=== PATIENT | female | born 1970 | race Caucasian/White ===

== ENCOUNTER 2017-10-18 17:02 | Emergency (ER) | payer SELFPAY ==
[~2017-10-18] VITALS: Ht 161.3 cm; Wt 88.6 kg
[~2017-10-18 17:02] MED LIST: ATIVAN0.5 MG PO; ATIVAN1 M1 PO; BACTRIM DS1 TAB PO; FLUARIX QUADRIV1 IN1 IM; LEVOTHYROXIN50 MC1 PO; LORTAB 7.5 PO; SYNTHROID25 MCG PO; TOPAMAX100 M1 PO; TRILEPTAL300 M1 OR; ULTRAM50 M1 PO
[2017-10-18 18:29] LABS: IMMATURE GRANULOCYTES 0.3 % (0.0-1.0); MEAN CORPUSCULAR HGB 32.3 pG CALC (26.0-32.0); MEAN CORPUSCULAR HGB CONC 34.3 g/L CALC (32.0-36.0); NEUT# 6.27 thou/uL (2.00-7.15); RED BLOOD COUNT 5.02 mill/uL (4.20-5.60); RED CELL DISTRI WIDTH 11.7 % (11.5-15.5)
[2017-10-18 18:31] LABS: HEMATOCRIT 47.2 % (37.0-47.0); HEMOGLOBIN 16.2 g/dl (12.0-16.0)
[2017-10-18 18:39] LABS: ALBUMIN 4.5 g/dL (3.2-5.0); BILIRUBIN, TOTAL 0.6 mg/dL (0.0-1.4); BUN 25 mg/dL (7-17); BUN/CREATININE RATIO 16 (12-20 (CALC)); CHLORIDE 99 mmol/l (95-108); CREATININE 1.6 mg/dL (0.5-1.0); GFR 35 ML/MIN (>=60 (CALC)); GFR FOR AFR.AMER. 42 ML/MIN (>=60 (CALC)); POTASSIUM 4.1 mmol/l (3.5-5.1); SGPT/ALT 58 u/l (9-52); SODIUM 141 mmol/l (137-146); TOTAL PROTEIN 8.2 g/dL (6.3-8.2)
[2017-10-18 18:51] LABS: MYOGLOBIN 55 ng/mL (0 - 62)
[2017-10-18 18:52] LABS: ALKALINE PHOSPHATASE 86 u/l (38-126); ANION GAP 19 (6-22 (CALC)); CARBON DIOXIDE 27 mmol/l (22-30); SGOT/AST 50 u/l (14-36)
[2017-10-18 18:56] LABS: URINE BILIRUBIN - DIPSTICK NEGATIVE (NEGATIVE); URINE BLOOD DIPSTICK SMALL (NEGATIVE); URINE COLOR YELLOW; URINE GLUCOSE - DIPSTICK NEGATIVE (NEGATIVE); URINE KETONE NEGATIVE (NEGATIVE); URINE LEUK ESTERASE NEGATIVE (NEGATIVE); URINE NITRITE - DIPSTICK NEGATIVE (Negative); URINE PH 5.5 (4.5-8.0); URINE PROTEIN - DIPSTICK NEGATIVE (NEG-TRACE); URINE UROBILINOGEN - DIPSTICK 0.2 E.U./dL (0.2)
[2017-10-18 18:59] LABS: URINE CLARITY CLEAR; URINE EPITHELIAL CELLS FEW EPI/hpf (0-FEW)
[2017-10-18] MEDS ORDERED: AMLODIPINE5 MG PO (19:21)
[2017-10-18 19:30] VITALS: BP 174/105
== END 2017-10-18 19:35 | disposition home or self-care (01) | DRG 305 ==
LOC: ED 17:02
DX: I16.0 Hypertensive urgency (principal); E07.9 Disorder of thyroid, unspecified; I10 Essential (primary) hypertension

== ENCOUNTER 2017-12-06 20:22 | Emergency (ER) | payer BC, OTHER ==
[~2017-12-06] VITALS: Ht 157.5 cm; Wt 89.2 kg
[~2017-12-06 20:22] MED LIST changes: +AMLODIPINE5 MG PO
[2017-12-06 21:16] LABS: URINE BILIRUBIN - DIPSTICK NEGATIVE (NEGATIVE); URINE BLOOD DIPSTICK SMALL (NEGATIVE); URINE COLOR YELLOW; URINE GLUCOSE - DIPSTICK NEGATIVE (NEGATIVE); URINE KETONE NEGATIVE (NEGATIVE); URINE NITRITE - DIPSTICK NEGATIVE (Negative); URINE PROTEIN - DIPSTICK NEGATIVE (NEG-TRACE); URINE UROBILINOGEN - DIPSTICK 0.2 E.U./dL (0.2)
[2017-12-06 21:21] LABS: URINE CLARITY CLOUDY; URINE LEUK ESTERASE SMALL (NEGATIVE)
[2017-12-06 21:22] LABS: HEMATOCRIT 43.1 % (37.0-47.0); IMMATURE GRANULOCYTES 0.5 % (0.0-1.0); MEAN CELL VOLUME 91.5 fL CALC (80.0-100.0); MEAN CORPUSCULAR HGB 31.8 pG CALC (26.0-32.0); MEAN CORPUSCULAR HGB CONC 34.8 g/L CALC (32.0-36.0); NEUT# 7.46 thou/uL (2.00-7.15); RED BLOOD COUNT 4.71 mill/uL (4.20-5.60); RED CELL DISTRI WIDTH 11.7 % (11.5-15.5)
[2017-12-06 21:29] LABS: ALBUMIN 4.8 g/dL (3.2-5.0); AMYLASE 115 u/l (30-110); ANION GAP 18 (6-22 (CALC)); BILIRUBIN, TOTAL 1.1 mg/dL (0.0-1.4); BUN 18 mg/dL (7-17); BUN/CREATININE RATIO 28 (12-20 (CALC)); CARBON DIOXIDE 23 mmol/l (22-30); CHLORIDE 99 mmol/l (95-108); CREATININE 0.7 mg/dL (0.5-1.0); GFR > 60 ML/MIN (>=60 (CALC)); GFR FOR AFR.AMER. > 60 ML/MIN (>=60 (CALC)); LIPASE 262 u/l (23-300); POTASSIUM 4.7 mmol/l (3.5-5.1); SGOT/AST 69 u/l (14-36); SGPT/ALT 100 u/l (9-52); SODIUM 135 mmol/l (137-146); TOTAL PROTEIN 9.1 g/dL (6.3-8.2)
[2017-12-06 21:31] LABS: URINE BACTERIA FEW hpf; URINE SQUAMOUS EPITHELIAL CELL FEW EPI/hpf (0-FEW)
[2017-12-06 21:37] LABS: ALKALINE PHOSPHATASE 132 u/l (38-126)
[2017-12-06 21:40] LABS: MYOGLOBIN 36 ng/mL (0 - 62)
[2017-12-06] MEDS ORDERED: ORPHENADRINE100 MG PO (22:45)
[2017-12-06] MEDS ORDERED: IBUPROFEN600 MG PO (22:45)
[2017-12-06] MEDS ORDERED: CIPROFLOXACN500 MG PO (22:46)
[2017-12-06 23:06] VITALS: BP 139/87
== END 2017-12-06 23:06 | disposition home or self-care (01) | DRG 690 ==
LOC: ED 20:22
PROVIDERS: Emergency Medicine
DX: N39.0 Urinary tract infection, site not specified (principal); R10.9 Unspecified abdominal pain; N20.0 Calculus of kidney

== ENCOUNTER 2017-12-08 07:05 | Emergency (ER) | payer BC, OTHER ==
[~2017-12-08] VITALS: Ht 157.5 cm; Wt 80.0 kg
[~2017-12-08 07:05] MED LIST changes: +CIPROFLOXACN500 MG PO; +IBUPROFEN600 MG PO; +ORPHENADRINE100 MG PO
[2017-12-08] MEDS ORDERED: ASPERCREME LIDOCA41 TOP ×2 (07:46→08:03)
[2017-12-08] MEDS ORDERED: MOTRIN400 MG PO ×2 (07:46→08:03)
[2017-12-08] MEDS ORDERED: VOLTAREN1%GEL TOP ×2 (07:46→08:03)
[2017-12-08] MEDS ORDERED: LEVOTHYROXIN50 MCG PO (07:57)
[2017-12-08] MEDS ORDERED: HYDROCHLOROT12.5 M1 PO (07:58)
[2017-12-08 08:35] VITALS: BP 144/83
== END 2017-12-08 08:35 | disposition home or self-care (01) | DRG 552 ==
LOC: ED 07:05
DX: M54.5 Low back pain (principal); M54.6 Pain in thoracic spine; I10 Essential (primary) hypertension; E07.9 Disorder of thyroid, unspecified

== ENCOUNTER 2019-04-14 07:52 | Emergency (ER) | payer SELFPAY ==
[~2019-04-14] VITALS: Ht 157.5 cm; Wt 80.0 kg
[~2019-04-14 07:52] MED LIST changes: +ASPERCREME LIDOCA41 TOP; +HYDROCHLOROT12.5 M1 PO; +LEVOTHYROXIN50 MCG PO; +MOTRIN400 MG PO; +VOLTAREN1%GEL TOP
[2019-04-14] MEDS ORDERED: LISINOP/HCTZ1 TA2 PO (08:15)
[2019-04-14] MEDS ORDERED: MUPIROCIN2 % EX (08:21)
[2019-04-14 08:25] VITALS: BP 151/86
== END 2019-04-14 08:30 | disposition home or self-care (01) | DRG 607 ==
LOC: ED 07:52
DX: S90.862A Insect bite (nonvenomous), left foot, initial encounter (principal); I10 Essential (primary) hypertension; F17.210 Nicotine dependence, cigarettes, uncomplicated; W57.XXXA Bitten or stung by nonvenomous insect and other nonvenomous arthropods, initial encounter

== ENCOUNTER 2019-12-28 07:30 | Emergency (ER) | payer SELFPAY ==
[~2019-12-28] VITALS: Ht 157.5 cm; Wt 90.0 kg
[~2019-12-28 07:30] MED LIST changes: +LISINOP/HCTZ1 TA2 PO; +MUPIROCIN2 % EX
[2019-12-28 08:54] LABS: URINE BILIRUBIN - DIPSTICK NEGATIVE (NEGATIVE); URINE BLOOD DIPSTICK MODERATE (NEGATIVE); URINE COLOR YELLOW; URINE GLUCOSE - DIPSTICK NEGATIVE (NEGATIVE); URINE KETONE NEGATIVE (NEGATIVE); URINE LEUK ESTERASE NEGATIVE (NEGATIVE); URINE NITRITE - DIPSTICK NEGATIVE (Negative); URINE PROTEIN - DIPSTICK TRACE mg/dL (NEG-TRACE)
[2019-12-28 08:57] LABS: ALBUMIN 4.7 g/dL (3.2-5.0); ALKALINE PHOSPHATASE 87 u/l (38-126); ANION GAP 9 (6-22 (CALC)); BUN 9 mg/dL (7-17); BUN/CREATININE RATIO 13 (12-20 (CALC)); CARBON DIOXIDE 26 mmol/l (22-30); CHLORIDE 107 mmol/l (95-108); CREATININE 0.7 mg/dL (0.5-1.0); GFR > 60 ML/MIN (>=60 (CALC)); GFR FOR AFR.AMER. > 60 ML/MIN (>=60 (CALC)); POTASSIUM 3.8 mmol/l (3.5-5.1); SGOT/AST 34 u/l (14-36); SODIUM 138 mmol/l (137-146); TOTAL PROTEIN 7.9 g/dL (6.3-8.2)
[2019-12-28 09:02] LABS: HCG SERUM/URINE (NEG/POS) NEGATIVE (NEGATIVE)
[2019-12-28 09:03] LABS: HEMATOCRIT 47.4 % (37.0-47.0); HEMOGLOBIN 15.4 g/dl (12.0-16.0); IMMATURE GRANULOCYTES 0.4 % (0.0-5.0); MEAN CORPUSCULAR HGB 31.2 pG CALC (26.0-32.0); MEAN CORPUSCULAR HGB CONC 32.5 g/dL CAL (32.0-36.0); NEUT# 9.26 thou/uL (2.00-7.15); RED BLOOD COUNT 4.94 mill/uL (4.20-5.60); RED CELL DISTRI WIDTH 12.3 % (11.5-15.5)
[2019-12-28 09:05] LABS: URINE EPITHELIAL CELLS FEW EPI/hpf (0-FEW)
[2019-12-28 09:05] LABS: BILIRUBIN, TOTAL 0.5 mg/dL (0.0-1.4)
[2019-12-28 09:29] LABS: TSH, 3RD GENERATION 0.65 uIU/mL (0.47 - 4.68)
[2019-12-28] MEDS ORDERED: CIPROFLOXACN500 MG PO (11:04)
[2019-12-28 11:06] VITALS: BP 169/109
== END 2019-12-28 11:16 | disposition home or self-care (01) | DRG 392 ==
LOC: ED 07:30
PROVIDERS: Emergency Medicine
DX: A08.4 Viral intestinal infection, unspecified (principal); I10 Essential (primary) hypertension; F17.200 Nicotine dependence, unspecified, uncomplicated; Z20.828 Contact with and (suspected) exposure to other viral communicable diseases

== ENCOUNTER 2020-10-15 | Emergency (ER) | payer BC ==
[2020-10-15] MEDS ORDERED: LISINOPRIL20 M1 PO (05:26)
[2020-10-15 05:53] LABS: HEMATOCRIT 50.5 % (37.0-47.0); HEMOGLOBIN 16.5 g/dl (12.0-16.0); IMMATURE GRANULOCYTES 0.4 % (0.0-5.0); MEAN CELL VOLUME 94.7 fL CALC (80.0-100.0); MEAN CORPUSCULAR HGB CONC 32.7 g/dL CAL (32.0-36.0); NEUT# 3.33 thou/uL (2.00-7.15); RED BLOOD COUNT 5.33 mill/uL (4.20-5.60); RED CELL DISTRI WIDTH 12.5 % (11.5-15.5); URINE BLOOD DIPSTICK SMALL (NEGATIVE); URINE COLOR YELLOW; URINE GLUCOSE - DIPSTICK NEGATIVE (NEGATIVE); URINE KETONE NEGATIVE (NEGATIVE); URINE LEUK ESTERASE NEGATIVE (NEGATIVE); URINE PH 6.5 (4.5-8.0); URINE PROTEIN - DIPSTICK 100 mg/dL (NEG-TRACE); URINE SPECIFIC GRAVITY >=1.030; URINE UROBILINOGEN - DIPSTICK 0.2 E.U./dL (0.2)
[2020-10-15 06:04] LABS: URINE BILIRUBIN - DIPSTICK NEGATIVE (NEGATIVE); URINE NITRITE - DIPSTICK NEGATIVE (Negative)
[2020-10-15 06:05] LABS: URINE BACTERIA FEW hpf; URINE SQUAMOUS EPITHELIAL CELL MANY EPI/hpf (0-FEW); URINE WBC 0-2 WBC/hpf (0-5)
[2020-10-15 06:54] LABS: ALBUMIN 3.9 g/dL (3.2-5.0); ALKALINE PHOSPHATASE 102 u/l (38-126); ANION GAP 10 (6-22 (CALC)); BILIRUBIN, TOTAL 0.6 mg/dL (0.0-1.4); BUN 8 mg/dL (7-17); BUN/CREATININE RATIO 10 (12-20 (CALC)); CARBON DIOXIDE 25 mmol/l (22-30); CHLORIDE 106 mmol/l (95-108); CREATININE 0.8 mg/dL (0.5-1.0); GFR > 60 ML/MIN (>=60 (CALC)); GFR FOR AFR.AMER. > 60 ML/MIN (>=60 (CALC)); MAGNESIUM 1.9 mg/dL (1.6-2.3); POTASSIUM 3.6 mmol/l (3.5-5.1); SODIUM 137 mmol/l (137-146); TOTAL PROTEIN 7.4 g/dL (6.3-8.2)
[2020-10-15 06:58] LABS: D-DIMER 0.63 mg/L (0.19-0.60)
[2020-10-15 07:02] LABS: ACT PARTIAL THROMBO TIME 26.4 SECONDS (20.0-32.5); PROTHROMBIN TIME 9.7 SECONDS (9.0-12.5)
[2020-10-15 07:05] LABS: MYOGLOBIN 50 ng/mL (0 - 62)
[2020-10-15 07:08] LABS: SGOT/AST 77 u/l (14-36)
[2020-10-15] MEDS ORDERED: ONDANSETRON4 MG PO (08:49)
== END 2020-10-15 11:57 | disposition home or self-care (01) | DRG 179 ==
PROVIDERS: Family Medicine
DX: U07.1 COVID-19 (principal); R11.2 Nausea with vomiting, unspecified; M79.10 Myalgia, unspecified site; I10 Essential (primary) hypertension; F17.210 Nicotine dependence, cigarettes, uncomplicated
CPT/HCPCS: Q9967

== ENCOUNTER 2021-03-13 03:04 | Emergency (ER) | payer SELFPAY ==
[~2021-03-13] VITALS: Ht 157.5 cm; Wt 85.0 kg
[~2021-03-13 03:04] MED LIST changes: +LISINOPRIL20 M1 PO; +ONDANSETRON4 MG PO
[2021-03-13 04:00] LABS: URINE BILIRUBIN - DIPSTICK NEGATIVE (NEGATIVE); URINE BLOOD DIPSTICK LARGE (NEGATIVE); URINE GLUCOSE - DIPSTICK NEGATIVE (NEGATIVE); URINE PH 6.5 (4.5-8.0); URINE PROTEIN - DIPSTICK 100 mg/dL (NEG-TRACE); URINE SPECIFIC GRAVITY 1.025; URINE UROBILINOGEN - DIPSTICK 0.2 E.U./dL (0.2)
[2021-03-13 04:02] LABS: URINE LEUK ESTERASE SMALL (NEGATIVE); URINE NITRITE - DIPSTICK POSITIVE (Negative)
[2021-03-13 04:02] LABS: HEMATOCRIT 46.3 % (37.0-47.0); HEMOGLOBIN 15.1 g/dl (12.0-16.0); IMMATURE GRANULOCYTES 0.3 % (0.0-5.0); MEAN CELL VOLUME 98.3 fL CALC (80.0-100.0); MEAN CORPUSCULAR HGB 32.1 pG CALC (26.0-32.0); MEAN CORPUSCULAR HGB CONC 32.6 g/dL CAL (32.0-36.0); NEUT# 10.18 thou/uL (2.00-7.15); RED BLOOD COUNT 4.71 mill/uL (4.20-5.60); RED CELL DISTRI WIDTH 11.9 % (11.5-15.5)
[2021-03-13 04:04] LABS: URINE COLOR RED
[2021-03-13 04:05] LABS: URINE KETONE NEGATIVE (NEGATIVE)
[2021-03-13 04:07] LABS: URINE BACTERIA MODERATE hpf; URINE EPITHELIAL CELLS FEW EPI/hpf (0-FEW); URINE RBC TNTC RBC/hpf (0-5)
[2021-03-13 04:18] LABS: ALKALINE PHOSPHATASE 89 u/l (38-126); ANION GAP 11 (6-22 (CALC)); BILIRUBIN, TOTAL 0.4 mg/dL (0.0-1.4); BUN 18 mg/dL (7-17); BUN/CREATININE RATIO 25 (12-20 (CALC)); CARBON DIOXIDE 23 mmol/l (22-30); CHLORIDE 105 mmol/l (95-108); CREATININE 0.7 mg/dL (0.5-1.0); GFR > 60 ML/MIN (>=60 (CALC)); GFR FOR AFR.AMER. > 60 ML/MIN (>=60 (CALC)); SGOT/AST 29 u/l (14-36); SODIUM 136 mmol/l (137-146); TOTAL PROTEIN 7.1 g/dL (6.3-8.2)
[2021-03-13] MEDS ORDERED: KEFLEX500 MG PO (05:13)
[2021-03-13 05:56] VITALS: BP 155/95
== END 2021-03-13 05:30 | disposition home or self-care (01) | DRG 690 ==
LOC: ED 03:04
PROVIDERS: Emergency Medicine
DX: N39.0 Urinary tract infection, site not specified (principal); I10 Essential (primary) hypertension; B96.20 Unspecified Escherichia coli [E. coli] as the cause of diseases classified elsewhere

== ENCOUNTER 2021-07-13 02:33 | Emergency (ER) | payer SELFPAY ==
[~2021-07-13] VITALS: Ht 157.5 cm; Wt 86.0 kg
[~2021-07-13 02:33] MED LIST changes: +KEFLEX500 MG PO
[2021-07-13] MEDS ORDERED: ZPAK PO ×2 (03:47→09:07)
[2021-07-13] MEDS ORDERED: TOBREX OPTH5 ML/BTL OS (03:47)
[2021-07-13 03:50] VITALS: BP 170/90
== END 2021-07-13 03:55 | disposition home or self-care (01) | DRG 153 ==
LOC: ED 02:33
DX: J06.9 Acute upper respiratory infection, unspecified (principal); H10.9 Unspecified conjunctivitis; I10 Essential (primary) hypertension; Z86.16 Personal history of COVID-19; Z20.822 Contact with and (suspected) exposure to COVID-19

== ENCOUNTER 2021-10-23 05:50 | Emergency (ER) | payer SELFPAY ==
[~2021-10-23] VITALS: Ht 157.5 cm; Wt 86.4 kg
[2021-10-23] VITALS (12 sets, daily range): BP systolic 134–160; BP diastolic 86–108
[~2021-10-23 05:50] MED LIST changes: +TOBREX OPTH5 ML/BTL OS; +ZPAK PO
[2021-10-23 06:34] LABS: HEMOGLOBIN 15.1 g/dl (12.0-16.0); IMMATURE GRANULOCYTES 0.9 % (0.0-5.0); MEAN CELL VOLUME 97.7 fL CALC (80.0-100.0); MEAN CORPUSCULAR HGB 32.1 pG CALC (26.0-32.0); MEAN CORPUSCULAR HGB CONC 32.8 g/dL CAL (32.0-36.0); NEUT# 5.31 thou/uL (2.00-7.15); RED BLOOD COUNT 4.71 mill/uL (4.20-5.60); RED CELL DISTRI WIDTH 12.7 % (11.5-15.5)
[2021-10-23] MEDS ORDERED: SYNTHROID25 MCG PO (06:51)
[2021-10-23] MEDS ORDERED: LISINOPRIL2.5 MG PO (06:52)
[2021-10-23 07:44] LABS: ALBUMIN 3.4 g/dL (3.2-5.0); ALKALINE PHOSPHATASE 86 u/l (38-126); ANION GAP 9 (6-22 (CALC)); BILIRUBIN, TOTAL 0.4 mg/dL (0.0-1.4); BUN 15 mg/dL (7-17); BUN/CREATININE RATIO 25 (12-20 (CALC)); CARBON DIOXIDE 23 mmol/l (22-30); CHLORIDE 109 mmol/l (95-108); CREATININE 0.6 mg/dL (0.5-1.0); GFR > 60 ML/MIN (>=60 (CALC)); GFR FOR AFR.AMER. > 60 ML/MIN (>=60 (CALC)); POTASSIUM 3.8 mmol/l (3.5-5.1); SGOT/AST 32 u/l (14-36); SODIUM 137 mmol/l (137-146); TOTAL PROTEIN 6.4 g/dL (6.3-8.2)
[2021-10-23 07:56] LABS: MYOGLOBIN 26 ng/mL (0 - 62)
[2021-10-23] MEDS ORDERED: TESSALON PERLE100 MG PO (08:08)
[2021-10-23] MEDS ORDERED: VENTOLIN HFA IN (08:08)
[2021-10-23] MEDS ORDERED: MEDDOSEPAK PO (08:08)
[2021-10-23] MEDS ORDERED: ZPAK PO (08:08)
== END 2021-10-23 08:20 | disposition home or self-care (01) | DRG 203 ==
LOC: ED 05:50
PROVIDERS: Emergency Medicine
DX: J45.909 Unspecified asthma, uncomplicated (principal); I10 Essential (primary) hypertension; Z86.16 Personal history of COVID-19; Z20.822 Contact with and (suspected) exposure to COVID-19

== ENCOUNTER 2021-12-26 01:39 | Emergency (ER) | payer SELFPAY ==
[~2021-12-26] VITALS: Ht 157.5 cm; Wt 82.0 kg
[~2021-12-26 01:39] MED LIST changes: +LISINOPRIL2.5 MG PO; +MEDDOSEPAK PO; +TESSALON PERLE100 MG PO; +VENTOLIN HFA IN
[2021-12-26 01:44] VITALS: BP 197/111
[2021-12-26 01:51] VITALS: BP 175/100
[2021-12-26 02:01] VITALS: BP 197/98
[2021-12-26 02:09] LABS: HEMATOCRIT 44.4 % (37.0-47.0); HEMOGLOBIN 14.4 g/dl (12.0-16.0); IMMATURE GRANULOCYTES 0.5 % (0.0-5.0); MEAN CELL VOLUME 96.7 fL CALC (80.0-100.0); MEAN CORPUSCULAR HGB 31.4 pG CALC (26.0-32.0); MEAN CORPUSCULAR HGB CONC 32.4 g/dL CAL (32.0-36.0); NEUT# 6.49 thou/uL (2.00-7.15); RED BLOOD COUNT 4.59 mill/uL (4.20-5.60); RED CELL DISTRI WIDTH 12.4 % (11.5-15.5)
[2021-12-26 02:16] VITALS: BP 179/101
[2021-12-26 02:17] LABS: HCG SERUM/URINE (NEG/POS) NEGATIVE (NEGATIVE)
[2021-12-26 02:21] LABS: ALBUMIN 3.8 g/dL (3.2-5.0); ALKALINE PHOSPHATASE 111 u/l (38-126); ANION GAP 8 (6-22 (CALC)); BILIRUBIN, TOTAL 0.3 mg/dL (0.0-1.4); BUN 10 mg/dL (7-17); BUN/CREATININE RATIO 16 (12-20 (CALC)); CARBON DIOXIDE 26 mmol/l (22-30); CHLORIDE 107 mmol/l (95-108); CREATININE 0.6 mg/dL (0.5-1.0); GFR FOR AFR.AMER. > 60 ML/MIN (>=60 (CALC)); GFR OTHER RACES > 60 ML/MIN (>=60 (CALC)); POTASSIUM 4.1 mmol/l (3.5-5.1); SGOT/AST 129 u/l (14-36); SODIUM 136 mmol/l (137-146); TOTAL PROTEIN 7.1 g/dL (6.3-8.2)
[2021-12-26 02:29] LABS: ACT PARTIAL THROMBO TIME 19.8 SECONDS (20.0-32.5); INTERNATIONAL NORMALIZED RATIO 0.8 RATIO (0.7-1.3); PROTHROMBIN TIME 8.9 SECONDS (9.0-12.5)
[2021-12-26 02:30] VITALS: BP 189/112
[2021-12-26 02:32] LABS: MYOGLOBIN 32 ng/mL (0 - 62)
[2021-12-26 02:36] LABS: D-DIMER 0.41 mg/L (0.19-0.60)
[2021-12-26] MEDS ORDERED: VENTOLIN HFA IN (02:48)
[2021-12-26 02:50] VITALS: BP 189/112
== END 2021-12-26 02:54 | disposition home or self-care (01) | DRG 179 ==
LOC: ED 01:39
PROVIDERS: Family Medicine
DX: U07.1 COVID-19 (principal); R05.9 Cough, unspecified; R06.02 Shortness of breath; I10 Essential (primary) hypertension; Z86.16 Personal history of COVID-19; Z28.310 Unvaccinated for COVID-19

== ENCOUNTER 2022-06-28 09:34 | Emergency (ER) | payer SELFPAY ==
[~2022-06-28] VITALS: Ht 157.5 cm; Wt 88.0 kg
[2022-06-28] VITALS (8 sets, daily range): BP systolic 152–194; BP diastolic 98–132
[2022-06-28 10:17] LABS: BASO% 0.5 % (0-3); EOS% 9.2 % (0-8); HEMATOCRIT 47.6 % (37.0-47.0); HEMOGLOBIN 16.3 g/dl (12.0-16.0); IMMATURE GRANULOCYTES 0.7 % (0.0-5.0); LYMPH% 14.7 % (15-41); MEAN CELL VOLUME 95.8 fL CALC (80.0-100.0); MEAN CORPUSCULAR HGB 32.8 pG CALC (26.0-32.0); MEAN CORPUSCULAR HGB CONC 34.2 g/dL CAL (32.0-36.0); MONO% 8.3 % (2-13); NEUT# 7.99 thou/uL (2.00-7.15); NEUT% 66.6 % (42-76); RED BLOOD COUNT 4.97 mill/uL (4.20-5.60); RED CELL DISTRI WIDTH 12.5 % (11.5-15.5)
[2022-06-28 10:27] LABS: ALKALINE PHOSPHATASE 114 u/l (38-126); ANION GAP 12 (6-22 (CALC)); BUN 15 mg/dL (7-17); BUN/CREATININE RATIO 22 (12-20 (CALC)); CARBON DIOXIDE 29 mmol/l (22-30); CHLORIDE 104 mmol/l (95-108); CREATININE 0.7 mg/dL (0.5-1.0); GFR FOR AFR.AMER. > 60 ML/MIN (>=60 (CALC)); GFR OTHER RACES > 60 ML/MIN (>=60 (CALC)); LIPASE 204 u/l (23-300); POTASSIUM 4.5 mmol/l (3.5-5.1); SGOT/AST 36 u/l (14-36); SODIUM 140 mmol/l (137-146); TOTAL PROTEIN 7.9 g/dL (6.3-8.2)
[2022-06-28 10:28] LABS: ALBUMIN 4.7 g/dL (3.2-5.0); BILIRUBIN, TOTAL 0.6 mg/dL (0.0-1.4)
[2022-06-28] MEDS ORDERED: OMEPRAZOLE DR20 MG PO (11:53)
== END 2022-06-28 12:05 | disposition home or self-care (01) | DRG 392 ==
LOC: ED 09:34
PROVIDERS: Family Medicine
DX: R10.13 Epigastric pain (principal); I10 Essential (primary) hypertension; E66.9 Obesity, unspecified
CPT/HCPCS: Q9967

== ENCOUNTER 2022-09-28 13:10 | Emergency (ER) | payer SELFPAY ==
[~2022-09-28] VITALS: Ht 157.5 cm; Wt 190.0 kg
[2022-09-28] VITALS (15 sets, daily range): BP systolic 152–188; BP diastolic 98–130
[~2022-09-28 13:10] MED LIST changes: +OMEPRAZOLE DR20 MG PO
[2022-09-28 14:08] LABS: BASO% 0.5 % (0-3); EOS% 2.7 % (0-8); HEMATOCRIT 51.1 % (37.0-47.0); IMMATURE GRANULOCYTES 0.5 % (0.0-5.0); LYMPH% 16.4 % (15-41); MEAN CORPUSCULAR HGB 31.6 pG CALC (26.0-32.0); MEAN CORPUSCULAR HGB CONC 33.3 g/dL CAL (32.0-36.0); NEUT# 7.4 thou/uL (2.00-7.15); NEUT% 71.9 % (42-76); RED BLOOD COUNT 5.38 mill/uL (4.20-5.60); RED CELL DISTRI WIDTH 11.8 % (11.5-15.5)
[2022-09-28 14:20] LABS: ALBUMIN 4.4 g/dL (3.2-5.0); ALKALINE PHOSPHATASE 104 u/l (38-126); BILIRUBIN, TOTAL 0.5 mg/dL (0.02-1.3); BUN 17 mg/dL (7-17); BUN/CREATININE RATIO 20 (12-20 (CALC)); CARBON DIOXIDE 27 mmol/l (22-30); CHLORIDE 105 mmol/l (95-108); CREATININE 0.8 mg/dL (0.5-1.0); GFR FOR AFR.AMER. > 60 ML/MIN (>=60 (CALC)); GFR OTHER RACES > 60 ML/MIN (>=60 (CALC)); SGOT/AST 48 u/l (14-36); SODIUM 141 mmol/l (137-146); TOTAL PROTEIN 7.8 g/dL (6.3-8.2)
[2022-09-28 14:22] LABS: ANION GAP 13 (6-22 (CALC)); POTASSIUM 3.5 mmol/l (3.5-5.1)
[2022-09-28 14:50] LABS: TSH, 3RD GENERATION 1.62 uIU/mL (0.47 - 4.68)
[2022-09-28 16:52] LABS: URINE BILIRUBIN - DIPSTICK NEGATIVE (NEGATIVE); URINE BLOOD DIPSTICK SMALL (NEGATIVE); URINE COLOR YELLOW; URINE GLUCOSE - DIPSTICK NEGATIVE (NEGATIVE); URINE KETONE NEGATIVE (NEGATIVE); URINE LEUK ESTERASE NEGATIVE (NEGATIVE); URINE NITRITE - DIPSTICK NEGATIVE (Negative); URINE PROTEIN - DIPSTICK TRACE mg/dL (NEG-TRACE); URINE SPECIFIC GRAVITY <=1.005; URINE UROBILINOGEN - DIPSTICK 0.2 E.U./dL (0.2)
[2022-09-28 17:01] LABS: URINE RBC 0-2 RBC/hpf (0-5); URINE SQUAMOUS EPITHELIAL CELL MANY EPI/hpf (0-FEW)
== END 2022-09-28 19:12 | disposition home or self-care (01) | DRG 204 ==
LOC: ED 13:10
PROVIDERS: Family Medicine
DX: R06.02 Shortness of breath (principal); I10 Essential (primary) hypertension; Z86.16 Personal history of COVID-19; Z20.822 Contact with and (suspected) exposure to COVID-19
CPT/HCPCS: Q9967

== ENCOUNTER 2024-02-08 16:26 | Emergency (ER) | payer SELFPAY ==
[~2024-02-08] VITALS: Ht 157.5 cm; Wt 90.7 kg
[~2024-02-08 16:26] MED LIST changes: +BUPROPION HCL150 MG PO; +ZYRTEC10 MG PO
[2024-02-08 16:34] VITALS: BP 177/111
[2024-02-08 16:45] VITALS: BP 164/94
[2024-02-08 16:50] LABS: BASO% 0.4 % (0-3); HEMOGLOBIN 16.2 g/dl (12.0-16.0); LYMPH% 20.6 % (15-41); MEAN CELL VOLUME 98.8 fL CALC (80.0-100.0); MEAN CORPUSCULAR HGB 32.7 pG CALC (26.0-32.0); MEAN CORPUSCULAR HGB CONC 33.1 g/dL CAL (32.0-36.0); MONO% 9.7 % (2-13); NEUT# 6.81 thou/uL (2.00-7.15); NEUT% 65.3 % (42-76); RED BLOOD COUNT 4.96 mill/uL (4.20-5.60)
[2024-02-08 17:00] VITALS: BP 165/101
[2024-02-08 17:04] LABS: ALBUMIN 4.3 g/dL (3.2-5.0); CREATININE 1.2 mg/dL (0.5-1.0); POTASSIUM 4.4 mmol/l (3.5-5.1); TOTAL PROTEIN 7.4 g/dL (6.3-8.2)
[2024-02-08 17:06] LABS: BILIRUBIN, TOTAL 0.8 mg/dL (0.02-1.3)
[2024-02-08 17:15] VITALS: BP 169/105
[2024-02-08 17:33] VITALS: BP 164/92
[2024-02-08 17:35] LABS: TSH, 3RD GENERATION 1.99 uIU/mL (0.47 - 4.68)
[2024-02-08 18:52] VITALS: BP 164/92
== END 2024-02-08 18:56 | disposition home or self-care (01) | DRG 204 ==
LOC: ED 16:26
PROVIDERS: Family Medicine
DX: R06.02 Shortness of breath (principal); R22.1 Localized swelling, mass and lump, neck; I10 Essential (primary) hypertension; E66.9 Obesity, unspecified; F17.210 Nicotine dependence, cigarettes, uncomplicated; Z86.16 Personal history of COVID-19; Z20.822 Contact with and (suspected) exposure to COVID-19
CPT/HCPCS: Q9967

== ENCOUNTER 2024-02-11 14:10 | Emergency (ER) | payer SELFPAY ==
[~2024-02-11] VITALS: Ht 157.5 cm; Wt 90.0 kg
[2024-02-11] VITALS (17 sets, daily range): BP systolic 139–193; BP diastolic 92–115
[2024-02-11 14:49] LABS: BASO% 0.4 % (0-3); EOS% 2.9 % (0-8); HEMOGLOBIN 16.7 g/dl (12.0-16.0); LYMPH% 15.9 % (15-41); MEAN CELL VOLUME 97.3 fL CALC (80.0-100.0); MEAN CORPUSCULAR HGB 31.9 pG CALC (26.0-32.0); MEAN CORPUSCULAR HGB CONC 32.7 g/dL CAL (32.0-36.0); MONO% 8.5 % (2-13); NEUT# 6.71 thou/uL (2.00-7.15); NEUT% 71.3 % (42-76); RED BLOOD COUNT 5.24 mill/uL (4.20-5.60); RED CELL DISTRI WIDTH 12.9 % (11.5-15.5)
[2024-02-11 14:57] LABS: ALBUMIN 4.4 g/dL (3.2-5.0); BILIRUBIN, TOTAL 0.8 mg/dL (0.02-1.3); CREATININE 0.7 mg/dL (0.5-1.0); POTASSIUM 4.2 mmol/l (3.5-5.1); TOTAL PROTEIN 7.9 g/dL (6.3-8.2)
[2024-02-11] MEDS ORDERED: DEXAMETHASONE SOD. PHOSPHATE 10 MG/ML VIAL IV ONE (16:05)
[2024-02-11 16:13] LABS: URINE BLOOD DIPSTICK Trace-intact (NEGATIVE); URINE GLUCOSE - DIPSTICK Negative (NEGATIVE); URINE KETONE Trace mg/dL (NEGATIVE); URINE LEUK ESTERASE Negative (NEGATIVE); URINE NITRITE - DIPSTICK Negative (Negative); URINE PROTEIN - DIPSTICK 100 mg/dL (NEG-TRACE); URINE SPECIFIC GRAVITY 1.025; URINE UROBILINOGEN - DIPSTICK 0.2 E.U./dL (0.2)
[2024-02-11 16:14] LABS: URINE COLOR Yellow
[2024-02-11 16:19] LABS: URINE WBC 0-2 WBC/hpf (0-5)
[2024-02-11 16:20] LABS: URINE AMORPH SEDIMENT MANY hpf (NONE-FEW); URINE CALCIUM OXALATE CRYSTALS MANY lpf; URINE SQUAMOUS EPITHELIAL CELL MANY EPI/hpf (0-FEW)
[2024-02-11] MEDS ORDERED: PREDNISONE20 MG PO (17:03)
== END 2024-02-11 17:10 | disposition home or self-care (01) | DRG 204 ==
LOC: ED 14:10
PROVIDERS: Nurse Practitioner
DX: R06.02 Shortness of breath (principal); E04.1 Nontoxic single thyroid nodule; I10 Essential (primary) hypertension; Z86.16 Personal history of COVID-19; Z20.822 Contact with and (suspected) exposure to COVID-19

== ENCOUNTER 2024-03-19 14:49 | Emergency (ER) | payer SELFPAY ==
[2024-03-19] VITALS (16 sets, daily range): BP systolic 124–200; BP diastolic 82–123
[~2024-03-19] VITALS: Ht 157.5 cm; Wt 99.0 kg
[~2024-03-19 14:49] MED LIST changes: +PREDNISONE20 MG PO
[2024-03-19] MEDS ORDERED: KETOROLAC TROMETHAMINE 30 MG/ML SDV IV STA (15:01)
[2024-03-19] MEDS ORDERED: ONDANSETRON HCl 4 MG/2 ML SDV IV STA (15:01)
[2024-03-19] MEDS ORDERED: SODIUM CHLORIDE 0.9% 1,000 ML IV STA (15:01)
[2024-03-19] MEDS ORDERED: LABETALOL HCL 20 MG/ 4 ML CARTRG IV ONE (15:05)
[2024-03-19] MEDS ORDERED: MORPHINE SULFATE 4 MG/ML VIAL IV STA (15:06)
[2024-03-19 15:11] LABS: URINE BILIRUBIN - DIPSTICK Negative (NEGATIVE); URINE BLOOD DIPSTICK Moderate (NEGATIVE); URINE GLUCOSE - DIPSTICK Negative (NEGATIVE); URINE KETONE 15 mg/dL (NEGATIVE); URINE LEUK ESTERASE Trace (NEGATIVE); URINE NITRITE - DIPSTICK Negative (Negative); URINE PH 6.5 (4.5-8.0); URINE PROTEIN - DIPSTICK >=300 mg/dL (NEG-TRACE); URINE SPECIFIC GRAVITY >=1.030; URINE UROBILINOGEN - DIPSTICK 0.2 E.U./dL (0.2)
[2024-03-19 15:11] LABS: BASO% 0.5 % (0-3); EOS% 3.2 % (0-8); HEMATOCRIT 51.2 % (37.0-47.0); HEMOGLOBIN 16.7 g/dl (12.0-16.0); IMMATURE GRANULOCYTES 0.4 % (0.0-5.0); LYMPH% 13.2 % (15-41); MEAN CELL VOLUME 97.9 fL CALC (80.0-100.0); MEAN CORPUSCULAR HGB 31.9 pG CALC (26.0-32.0); MEAN CORPUSCULAR HGB CONC 32.6 g/dL CAL (32.0-36.0); MONO% 7.6 % (2-13); NEUT# 9.75 thou/uL (2.00-7.15); NEUT% 75.1 % (42-76); RED BLOOD COUNT 5.23 mill/uL (4.20-5.60)
[2024-03-19 15:23] LABS: ALBUMIN 4.6 g/dL (3.2-5.0); BILIRUBIN, TOTAL 0.6 mg/dL (0.02-1.3); CREATININE 0.7 mg/dL (0.5-1.0); POTASSIUM 4.1 mmol/l (3.5-5.1); TOTAL PROTEIN 8.5 g/dL (6.3-8.2)
[2024-03-19 15:25] LABS: URINE COLOR Yellow
[2024-03-19 15:26] LABS: URINE AMORPH SEDIMENT FEW hpf (NONE-FEW); URINE MUCUS FEW hpf (NONE-FEW); URINE RBC 0-2 RBC/hpf (0-5); URINE WBC 0-2 WBC/hpf (0-5)
[2024-03-19 15:28] LABS: URINE SQUAMOUS EPITHELIAL CELL MODERATE EPI/hpf (0-FEW)
[2024-03-19 15:29] LABS: URINE HYALINE CAST FEW lpf (NONE-RARE)
[2024-03-19] MEDS ORDERED: hydrALAZINE HCL 20 MG/ML VIAL(1 ML) IV ONE (16:35)
[2024-03-19] MEDS ORDERED: TRAMADOL HYDROC50 M1 PO (16:44)
[2024-03-19] MEDS ORDERED: TORADOL PO (16:44)
== END 2024-03-19 17:32 | disposition home or self-care (01) | DRG 694 ==
LOC: ED 14:49
PROVIDERS: Nurse Practitioner
DX: N20.0 Calculus of kidney (principal)

== ENCOUNTER 2024-03-21 11:02 | Emergency (ER) | payer SELFPAY ==
[2024-03-21] VITALS (8 sets, daily range): BP systolic 143–189; BP diastolic 90–123
[~2024-03-21] VITALS: Ht 157.5 cm; Wt 90.9 kg
[~2024-03-21 11:02] MED LIST changes: +TORADOL PO; +TRAMADOL HYDROC50 M1 PO
[2024-03-21] MEDS ORDERED: SODIUM CHLORIDE 0.9% 1,000 ML IV STA (11:32)
[2024-03-21] MEDS ORDERED: KETOROLAC TROMETHAMINE 30 MG/ML SDV IV STA (11:32)
[2024-03-21] MEDS ORDERED: MORPHINE SULFATE 4 MG/ML VIAL IV STA (11:32)
[2024-03-21] MEDS ORDERED: ONDANSETRON HCl 4 MG/2 ML SDV IV STA (11:32)
[2024-03-21] MEDS ORDERED: TAMSULOSIN HCL 0.4 MG CAP PO STA (11:32)
[2024-03-21 12:00] LABS: URINE BLOOD DIPSTICK Large (NEGATIVE); URINE GLUCOSE - DIPSTICK 100 mg/dL (NEGATIVE); URINE KETONE 40 mg/dL (NEGATIVE); URINE LEUK ESTERASE Trace (NEGATIVE); URINE PROTEIN - DIPSTICK >=300 mg/dL (NEG-TRACE); URINE SPECIFIC GRAVITY 1.025
[2024-03-21 12:11] LABS: URINE COLOR Yellow; URINE NITRITE - DIPSTICK Positive (Negative)
[2024-03-21 12:13] LABS: URINE BACTERIA MANY hpf; URINE EPITHELIAL CELLS MANY EPI/hpf (0-FEW); URINE RBC 25-50 RBC/hpf (0-5)
[2024-03-21 12:13] LABS: BASO% 0.3 % (0-3); EOS% 0.7 % (0-8); HEMATOCRIT 46.4 % (37.0-47.0); HEMOGLOBIN 15.2 g/dl (12.0-16.0); IMMATURE GRANULOCYTES 0.4 % (0.0-5.0); LYMPH% 7.5 % (15-41); MEAN CELL VOLUME 98.3 fL CALC (80.0-100.0); MEAN CORPUSCULAR HGB 32.2 pG CALC (26.0-32.0); MEAN CORPUSCULAR HGB CONC 32.8 g/dL CAL (32.0-36.0); MONO% 10.9 % (2-13); NEUT# 12.99 thou/uL (2.00-7.15); NEUT% 80.2 % (42-76); RED BLOOD COUNT 4.72 mill/uL (4.20-5.60); RED CELL DISTRI WIDTH 12.2 % (11.5-15.5)
[2024-03-21 12:39] LABS: ALBUMIN 4.1 g/dL (3.2-5.0); CREATININE 0.7 mg/dL (0.5-1.0); POTASSIUM 3.7 mmol/l (3.5-5.1); TOTAL PROTEIN 7.6 g/dL (6.3-8.2)
[2024-03-21 12:43] LABS: BILIRUBIN, TOTAL 1.1 mg/dL (0.02-1.3)
[2024-03-21] MEDS ORDERED: cefTRIAXone SODIUM 2 GM in SODIUM CHLORIDE 0.9% 100 ML IV ONE (13:15)
[2024-03-21] MEDS ORDERED: BACTRIM DS1 TAB PO (13:24)
== END 2024-03-21 14:03 | disposition home or self-care (01) | DRG 690 ==
LOC: ED 11:02
PROVIDERS: Emergency Medicine
DX: N39.0 Urinary tract infection, site not specified (principal); I10 Essential (primary) hypertension; Z86.16 Personal history of COVID-19

== ENCOUNTER 2024-05-28 06:00 | Emergency (ER) | payer SELFPAY ==
[2024-05-28] VITALS (11 sets, daily range): BP systolic 153–188; BP diastolic 90–123
[~2024-05-28] VITALS: Ht 160 cm; Wt 86.0 kg
[2024-05-28] MEDS ORDERED: IPRATROPIUM-Albuterol 0.5MG-2.5MG/3 ML NEB ONE (06:30)
[2024-05-28] MEDS ORDERED: LISINOPRIL 10 MG/TAB PO ONE (06:30)
[2024-05-28] MEDS ORDERED: cloNIDine HCL 0.1 MG/TAB PO ONE (06:30)
[2024-05-28 07:02] LABS: BASO% 0.5 % (0-3); EOS% 2.7 % (0-8); HEMATOCRIT 47.7 % (37.0-47.0); HEMOGLOBIN 15.1 g/dl (12.0-16.0); IMMATURE GRANULOCYTES 0.2 % (0.0-5.0); MEAN CELL VOLUME 98.8 fL CALC (80.0-100.0); MEAN CORPUSCULAR HGB 31.3 pG CALC (26.0-32.0); MEAN CORPUSCULAR HGB CONC 31.7 g/dL CAL (32.0-36.0); MONO% 7.9 % (2-13); NEUT# 5.83 thou/uL (2.00-7.15); NEUT% 70.7 % (42-76); RED BLOOD COUNT 4.83 mill/uL (4.20-5.60); RED CELL DISTRI WIDTH 11.9 % (11.5-15.5)
[2024-05-28 07:50] LABS: ALBUMIN 3.8 g/dL (3.2-5.0); CREATININE 0.7 mg/dL (0.5-1.0); POTASSIUM 4.2 mmol/l (3.5-5.1); TOTAL PROTEIN 6.7 g/dL (6.3-8.2)
[2024-05-28 07:54] LABS: BILIRUBIN, TOTAL 0.5 mg/dL (0.02-1.3)
[2024-05-28] MEDS ORDERED: LISINOPRIL10 MG PO (08:02)
[2024-05-28] MEDS ORDERED: SYNTHROID25 MCG PO (08:02)
[2024-05-28] MEDS ORDERED: HYDROCHLOROT25 MG PO (08:02)
[2024-05-28 08:21] LABS: TSH, 3RD GENERATION 1.33 uIU/mL (0.47 - 4.68)
== END 2024-05-28 08:30 | disposition home or self-care (01) | DRG 153 ==
LOC: ED 06:00
PROVIDERS: Family Medicine
DX: J06.9 Acute upper respiratory infection, unspecified (principal); I10 Essential (primary) hypertension; E03.9 Hypothyroidism, unspecified; T46.5X6A Underdosing of other antihypertensive drugs, initial encounter; T38.1X6A Underdosing of thyroid hormones and substitutes, initial encounter; Z91.120 Patient's intentional underdosing of medication regimen due to financial hardship; Z86.16 Personal history of COVID-19; Z87.891 Personal history of nicotine dependence; Z20.822 Contact with and (suspected) exposure to COVID-19

== ENCOUNTER 2024-08-12 12:18 | Emergency (ER) | payer SELFPAY ==
[~2024-08-12] VITALS: Ht 160 cm; Wt 90.7 kg
[2024-08-12] VITALS (20 sets, daily range): BP systolic 143–197; BP diastolic 77–111
[~2024-08-12 12:18] MED LIST changes: +HYDROCHLOROT25 MG PO; +LISINOPRIL10 MG PO
[2024-08-12] MEDS ORDERED: ONDANSETRON HCl 4 MG/2 ML SDV IV ONE (13:10)
[2024-08-12] MEDS ORDERED: SODIUM CHLORIDE 0.9% 1,000 ML IV ONE (13:10)
[2024-08-12] MEDS ORDERED: MECLIZINE HCL 25 MG/TAB PO ONE (13:10)
[2024-08-12 13:15] LABS: BASO% 0.4 % (0-3); EOS% 1.5 % (0-8); HEMATOCRIT 52.2 % (37.0-47.0); IMMATURE GRANULOCYTES 0.7 % (0.0-5.0); LYMPH% 16.3 % (15-41); MEAN CELL VOLUME 97.4 fL CALC (80.0-100.0); MEAN CORPUSCULAR HGB 31.7 pG CALC (26.0-32.0); MEAN CORPUSCULAR HGB CONC 32.6 g/dL CAL (32.0-36.0); MONO% 8.7 % (2-13); NEUT# 7.71 thou/uL (2.00-7.15); NEUT% 72.4 % (42-76); RED BLOOD COUNT 5.36 mill/uL (4.20-5.60); RED CELL DISTRI WIDTH 13.1 % (11.5-15.5)
[2024-08-12 13:27] LABS: ALBUMIN 4.4 g/dL (3.2-5.0); ALKALINE PHOSPHATASE 116 u/l (38-126); ANION GAP 11 (6-22 (CALC)); BUN 12 mg/dL (7-17); BUN/CREATININE RATIO 17 (12-20 (CALC)); CARBON DIOXIDE 26 mmol/l (22-30); CHLORIDE 104 mmol/l (95-108); CREATININE 0.7 mg/dL (0.5-1.0); ESTIMATED GFR 104 ML/MIN (>=90 (CALC)); POTASSIUM 4.7 mmol/l (3.5-5.1); SODIUM 136 mmol/l (137-146); TOTAL PROTEIN 7.8 g/dL (6.3-8.2)
[2024-08-12 14:09] LABS: BILIRUBIN, TOTAL 0.8 mg/dL (0.02-1.3); SGOT/AST 66 u/l (14-36)
[2024-08-12] MEDS ORDERED: hydrALAZINE HCL 20 MG/ML VIAL(1 ML) IV ONE (14:45)
[2024-08-12 15:03] LABS: URINE BILIRUBIN - DIPSTICK Negative (NEGATIVE); URINE BLOOD DIPSTICK Trace-lysed (NEGATIVE); URINE GLUCOSE - DIPSTICK Negative (NEGATIVE); URINE KETONE Negative (NEGATIVE); URINE LEUK ESTERASE Negative (NEGATIVE); URINE NITRITE - DIPSTICK Negative (Negative); URINE PROTEIN - DIPSTICK 100 mg/dL (NEG-TRACE); URINE SPECIFIC GRAVITY 1.025; URINE UROBILINOGEN - DIPSTICK 0.2 E.U./dL (0.2)
[2024-08-12 15:15] LABS: URINE COLOR Yellow; URINE EPITHELIAL CELLS MANY EPI/hpf (0-FEW); URINE RBC 0-2 RBC/hpf (0-5); URINE WBC 0-2 WBC/hpf (0-5)
[2024-08-12 15:16] LABS: URINE BACTERIA FEW hpf
[2024-08-12] MEDS ORDERED: ONDANSETRON4 MG PO (16:54)
[2024-08-12] MEDS ORDERED: MECLIZINE 2525 MG PO (16:54)
== END 2024-08-12 17:16 | disposition home or self-care (01) | DRG 149 ==
LOC: ED 12:18
PROVIDERS: Family Medicine
DX: R42 Dizziness and giddiness (principal); R07.89 Other chest pain; I10 Essential (primary) hypertension; Z20.822 Contact with and (suspected) exposure to COVID-19; Z86.16 Personal history of COVID-19
CPT/HCPCS: J0360; J2405